=== PATIENT | male | born 2005 | race American Indian/Alaskan Native ===

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

== ENCOUNTER 2024-05-21 20:44 | Emergency (ER) | payer BC, MEDICAID ==
[2024-05-21] MEDS: Sodium Chloride 0.9% 1,000 ML IV ONE (21:09)
[2024-05-21] MEDS: methylPREDNISolone Sodium Succinate 125 MG/2 ML SDV IVPUSH ONE (21:09)
[2024-05-21] MEDS: Famotidine 20 MG/2 ML SDV IVPUSH ONE (21:09)
[2024-05-21] MEDS: diphenhydrAMINE 50 MG/ML SDV IVPUSH ONE (21:10)
== END 2024-05-21 21:55 | disposition home or self-care (01) ==
LOC: MW.ED 20:44
DX: M79.89 Other specified soft tissue disorders (principal); T39.1X5A Adverse effect of 4-Aminophenol derivatives, initial encounter; Z88.5 Allergy status to narcotic agent; Z88.6 Allergy status to analgesic agent; Z91.048 Other nonmedicinal substance allergy status; Z79.899 Other long term (current) drug therapy
CPT/HCPCS: 96361; 96374; 96375; 99283; J1200; J2919; J7030

== ENCOUNTER 2024-05-23 13:32 | Emergency (ER) | payer MEDICAID ==
[2024-05-23 14:06] LABS: BASOPHILS ABSOLUTE AUTO 0.02 K/uL (0.00-0.30); BASOPHILS PERCENT AUTO 0.2 % (0.0-1.0); EOSINOPHILS ABSOLUTE AUTO 0.08 K/uL (0.00-0.70); HEMATOCRIT 47.1 % (42.0-52.0); HEMOGLOBIN 16.1 g/dL (14.0-18.0); IMMATURE GRAN ABSOLUTE AUTO 0.02 K/uL (0.00-0.05); IMMATURE GRAN PERCENT AUTO 0.2 % (0.0-0.4); LYMPHOCYTES ABSOLUTE AUTO 2.91 K/uL (2.00-8.80); MEAN CORPUSCULAR HEMOGLOBIN 30.7 pg (28.0-32.0); MEAN CORPUSCULAR HGB CONC 34.2 g/dL (32.0-36.0); MEAN CORPUSCULAR VOLUME 89.7 fL (83.0-99.0); MEAN PLATELET VOLUME 10.5 fL (9.4-12.4); MONOCYTES ABSOLUTE AUTO 0.64 K/uL (0.10-1.40); MONOCYTES PERCENT AUTO 7.7 % (2.0-10.0); NEUTROPHILS ABSOLUTE AUTO 4.64 K/uL (1.50-8.50); NEUTROPHILS PERCENT AUTO 55.9 % (35.0-45.0); PLATELET COUNT,PLT 206 K/uL (150-400); RED BLOOD CELL COUNT 5.25 M/uL (4.52-5.90); WHITE BLOOD CELL COUNT,WBC 8.31 K/uL (4.5-13.5)
[2024-05-23] MEDS: Famotidine 20 MG/2 ML SDV IVPUSH ONE (14:06)
[2024-05-23] MEDS: methylPREDNISolone Sodium Succinate 125 MG/2 ML SDV IVPUSH ONE (14:06)
[2024-05-23] MEDS: diphenhydrAMINE 50 MG Cap PO ONE (14:06)
[2024-05-23 14:16] LABS: A/G RATIO 1.2 (0.9-1.6); BILIRUBIN TOTAL 0.8 mg/dL (0.2-1.0); CALCIUM 9.1 mg/dL (8.5-10.1); CARBON DIOXIDE,CO2 26.2 mmol/L (21.0-32.0); CREATININE 0.9 mg/dL (0.8-1.3); EST CRCL DRUG DOSING (CG) 144.9 mL/min; POTASSIUM,K 3.9 mmol/L (3.5-5.1); PROTEIN TOTAL,TP 7.4 g/dL (6.4-8.2)
== END 2024-05-23 15:54 | disposition home or self-care (01) ==
LOC: MW.ED 13:32
DX: T78.40XA Allergy, unspecified, initial encounter (principal); K13.0 Diseases of lips; Z75.8 Other problems related to medical facilities and other health care; Z88.6 Allergy status to analgesic agent; Z91.018 Allergy to other foods
CPT/HCPCS: 36415; 80053; 85025; 96374; 96375; 99283; A9270; J2919

== ENCOUNTER 2024-12-13 20:33 | Emergency (ER) | payer MEDICAID, OTHER | END 2024-12-13 22:52 | disposition home or self-care (01) | LOC: MW.ED 20:33 | DX: M25.532 Pain in left wrist (principal); Z88.6 Allergy status to analgesic agent; Z88.8 Allergy status to other drugs, medicaments and biological substances; Z79.899 Other long term (current) drug therapy; W23.0XXA Caught, crushed, jammed, or pinched between moving objects, initial encounter; Y93.89 Activity, other specified | CPT/HCPCS: 73110-26-LT; 73110-LT; 99283 ==

== ENCOUNTER 2025-02-14 17:12 | Emergency (ER) | payer BC ==
[2025-02-14] MEDS: fentaNYL 50 MCG/ML SDV ONE (17:25)
[2025-02-14] MEDS: Ondansetron 4 MG/2 ML SDV IVPUSH ONE ×2 (17:26→19:04)
[2025-02-14] MEDS: fentaNYL 50 MCG/ML SDV IVPUSH ONE ×2 (17:26→19:03)
[2025-02-14] MEDS ORDERED: Sodium Chloride 0.9% 10 ML Syringe FLUSH PRN (17:30)
[2025-02-14] MEDS ORDERED: Sodium Chloride 0.9% 2.5 ML Syringe FLUSH PRN (17:30)
[2025-02-14 17:46] LABS: BASOPHILS ABSOLUTE AUTO 0.03 K/uL (0.00-0.20); BASOPHILS PERCENT AUTO 0.3 % (0.0-1.0); EOSINOPHILS ABSOLUTE AUTO 0.08 K/uL (0.00-0.45); EOSINOPHILS PERCENT AUTO 0.8 % (0.0-6.0); IMMATURE GRAN ABSOLUTE AUTO 0.06 K/uL (0.00-0.05); IMMATURE GRAN PERCENT AUTO 0.6 % (0.0-0.4); LYMPHOCYTES ABSOLUTE AUTO 1.53 K/uL (1.00-4.80); LYMPHOCYTES PERCENT AUTO 15.9 % (24.0-44.0); MEAN PLATELET VOLUME 10.3 fL (9.4-12.4); MONOCYTES ABSOLUTE AUTO 0.80 K/uL (0.00-0.80); MONOCYTES PERCENT AUTO 8.3 % (0.0-8.0); NEUTROPHILS ABSOLUTE AUTO 7.12 K/uL (1.80-7.70); NEUTROPHILS PERCENT AUTO 74.1 % (41.0-71.0); NRBC ABSOLUTE 0.00 K/uL (0.00-0.02); NRBC PERCENT 0.0 /100WBC (0.0-0.2); PLATELET COUNT,PLT 233 K/uL (150-400); RED BLOOD CELL COUNT 5.04 M/uL (4.52-5.90); WHITE BLOOD CELL COUNT,WBC 9.62 K/uL (3.9-11.3)
[2025-02-14] MEDS: Iopamidol 755 MG/ML 500 ML Multipack Bottle IVPUSH STA (18:00)
[2025-02-14] MEDS: Ondansetron 4 MG/2 ML SDV ONE (18:10)
[2025-02-14 18:20] LABS: A/G RATIO 1.3 (0.9-1.6); ALANINE AMINOTRANSFERASE,ALT 134 IU/L (14-63); ASPARTATE AMNIOTRANSFERASE,AST 131 IU/L (15-37); BILIRUBIN TOTAL 0.4 mg/dL (0.2-1.0); BLOOD UREA NITROGEN,BUN 21 mg/dL (7.0-18.0); CARBON DIOXIDE,CO2 27.4 mmol/L (21.0-32.0); CHLORIDE,CL 104 mmol/L (98-107); CREATININE 1.1 mg/dL (0.8-1.3); GLUCOSE RANDOM 82 mg/dL (74-106); POTASSIUM,K 3.8 mmol/L (3.5-5.1); PROTEIN TOTAL,TP 7.4 g/dL (6.4-8.2); SODIUM,NA 142 mmol/L (136-148)
[2025-02-14 18:25] LABS: ESTIMATED GFR 99 mL/min (>60)
[2025-02-14 18:45] LABS: APPEARANCE,URINE CLEAR; GLUCOSE,URINE NEGATIVE (NEGATIVE); OCCULT BLOOD,URINE SMALL (NEGATIVE)
[2025-02-14 18:56] LABS: EPITHELIAL CELLS,URINE RARE (NONE-FEW)
[2025-02-14] MEDS: Diphtheria,Pertussis(Acell),Tetanus Vaccine 0.5 ML Syringe IM ONE (19:03)
== END 2025-02-14 20:50 | disposition critical access hospital (66) ==
LOC: MW.ED 17:12
DX: S14.3XXA Injury of brachial plexus, initial encounter (principal); S19.9XXA Unspecified injury of neck, initial encounter; Z88.6 Allergy status to analgesic agent; Z88.8 Allergy status to other drugs, medicaments and biological substances; W22.8XXA Striking against or struck by other objects, initial encounter; Y99.0 Civilian activity done for income or pay; Z23 Encounter for immunization
CPT/HCPCS: 36415; 70450; 71045; 71260; 72125; 72128; 72131; 72170; 73030; 73060; 74177; 80053; 81001; 83690; 85025; 90471; 90715; 96374; 96375; 96376; 99285; J2405; J3010; Q9967